=== PATIENT | male | born 1960 | race Caucasian/White ===

== ENCOUNTER 2022-12-06 13:37 | Outpatient (OUT) | payer OTHER, SELFPAY ==
--- NOTE | 2022-12-06 | VEIN_ITS ---
Patient: KEIRA THURSTON Exam Date: 12/06/2022 : 1960 Gender:M Ordering : DR ISAIAH CABEZAS M.D. Admission #: [id number] Family : Order #: [id number] CLICK HERE TO VIEW EXAM RADIOLOGY REPORT PROCEDURE: VC EXT VENOUS REFLUX CHAVO LMTD COMPARISON: None. INDICATIONS: Pain due to varicose veins of bilateral legs I83.813 TECHNIQUE: Duplex imaging of the lower extremity to assess the deep and superficial venous system for the presence of deep or superficial venous incompetence and to document the location and severity of disease. The study includes evaluation of the great saphenous vein (GSV), anterior accessory saphenous vein (AASV) and small saphenous vein (SSV). Patient scanned in reverse Trendelenburg and standing. FINDINGS: RIGHT LOWER EXTREMITY: Saphenofemoral Junction Reflux: Yes 4.9mm 0.9 sec GSV: Diam (mm) Reflux/ Time (sec) Proximal Thigh 2.5 Yes 0.7 Mid Thigh 2.0 No Distal Thigh 2.3 Yes 0.6 Prox Calf 1.7 No Mid Calf 1.8 No Saphenopopliteal Junction Reflux: 3.2mm No SSV: Proximal Calf 2.1 No Mid Calf 2.4 No AASV: Proximal Thigh 2.5 Yes 0.5 Mid Thigh 2.1 No Distal Thigh Thrombi: No acute or chronic thrombus visualized Compressibility: Normal Flow: Normal Preforator: Dist/med calf 2.8mm with 0s reflux. Mid/med calf 2.1mm with 0.9s reflux. Tech Note: No incompetent veins visualized. Patent varicose vein mid/med calf 1.7mm with 0s reflux. LEFT LOWER EXTREMITY: Saphenofemoral Junction Reflux: mm sec GSV: Diam (mm) Reflux/Time (sec) Proximal Thigh N/A Mid Thigh N/A Distal Thigh N/A Prox Calf N/A Mid Calf N/A Saphenopopliteal Junction Relux: 2.8 mm No SSV: Proximal Calf 2.9 No Mid Calf 2.1 No AASV: Not present Proximal Thigh Mid Thigh Distal Thigh Thrombi: No acute or chronic thrombus visualized Compressibility: Normal Flow: Normal Literacy Coach: Mid/med calf 1.8mm with 0s reflux. Tech Note: No incompetency or varicose veins visualized. CONCLUSION: 1. Prior stripping of the left great saphenous vein. 2. No abnormally dilated or incompetent superficial veins. 3. No deep vein thrombus. Dictated by: Simba Watts M.D. on 12/06/2022 at 14:50 Approved by: Simba Watts M.D. on 12/06/2022 at 15:08
--- NOTE | 2022-12-06 | VEIN_ITS ---
Patient: KEIRA THURSTON Exam Date: 12/06/2022 : 1960 Gender:M Ordering : DR ISAIAH CABEZAS M.D. Admission #: [id number] Family : Order #: [id number] CLICK HERE TO VIEW EXAM RADIOLOGY REPORT PROCEDURE: [facility] - OFFICE VISIT INITIAL COMPARISON: None. PROGRESS NOTES: [age] year old male who presents with a several year history of lower extremity pain predominantly involving the left ankle and foot. The patient's left leg symptoms are worse than the right. There has been a progression of symptoms over time. This increases with walking and prolonged activity. The patient describes an improvement with rest. The patient has drinking and smoking history of daily alcohol consumption. Patient has a past medical history significant for diabetes mellitus, coronary artery disease, peripheral vascular disease, cerebrovascular accident, hypertension. The patient denies a history of deep venous thrombus or pulmonary embolus. See separate history and physical for medication list. Prior stripping of left great saphenous vein. No current use of compression stockings. After review of nurse notes, history and physical exam I discussed at length the pathophysiology of venous hypertension and possible treatments, therapies and strategies available. We discussed at length the importance of elevating the lower extremities above the level of the heart, increased physical activity and compression stocking use. Ultrasound venous reflux study performed today was discussed at length with the patient. The report demonstrates no abnormally dilated or incompetent superficial veins. No deep vein thrombus.. PHYSICAL EXAM: The right leg demonstrates no varicosities, no spider veins, no ulceration, no edema, no suspicious skin discoloration. The left leg demonstrates no varicosities, no spider veins, no ulceration, no edema, no suspicious skin discoloration. Both thighs, legs and feet were symmetrically warm to the touch. Good posterior tibial and dorsalis pedis pulses were present bilaterally. IMPRESSION: 1. No significant venous insufficiency 2. No significant lower extremity varicose veins 3. No significant lower extremity subcutaneous edema 4. Concern for flow significant arterial disease 5. CEAP: C0, AN, AN, PN PLAN: 1. Return to primary care physician for further guidance. 2. Consideration should be given to arterial peripheral vascular disease which may result and ischemia with prolonged activity. Consider CT angiography of the aorta with bilateral lower extremity runoff to evaluate for atherosclerotic disease of the lower extremities. Ultrasound evaluation of the lower extremity arteries could be performed to document normal versus abnormal waveform and flow. Nurse notes, history and physical were reviewed and confirmed, see attached forms. The nurse was present throughout the physical exam and consultation Dictated by: Simba Watts M.D. on 12/06/2022 at 15:08 Approved by: Simba Watts M.D. on 12/06/2022 at 15:17
== END 2022-12-06 13:38 | disposition home or self-care (01) ==
LOC: VC 13:37
PROVIDERS: PCP Radiology Diagnostic Radiology; Visit Provider Radiology Diagnostic Radiology
DX: I83.813 Varicose veins of bilateral lower extremities with pain (principal); Z98.890 Other specified postprocedural states
CPT/HCPCS: 93970; G0463